=== PATIENT | female | born 1970 | race Caucasian/White ===

== ENCOUNTER 2016-07-19 08:47 | Day surgery (SDC) | payer BC ==
[2016-07-17 18:28] LABS: HEMATOCRIT 41.2 % (36.0-48.0); HEMOGLOBIN 14.1 g/dL (12.0-16.0)
[2016-07-17 18:41] LABS: A/G RATIO 1.1 (0.7-1.9); ALBUMIN 3.8 G/DL (3.5-5.0); ALKALINE PHOSPHATASE 79 U/L (45-117); BUN (BLOOD UREA NITROGEN) 14 MG/DL (6-23); CALCIUM, SERUM 9.5 MG/DL (8.5-10.4); CHLORIDE, SERUM 109 MMOL/L (96-112); CO2 (CARBON DIOXIDE) 30 MMOL/L (24-34); CREATININE 0.74 MG/DL (0.55-1.02); GFR AFRICAN AMERICAN 113 ML/MIN (>=60); GFR NON AFRICAN AMERICAN 98 ML/MIN (>=60); GLOBULIN 3.5 G/DL (2.5-4.1); GLUCOSE, SERUM 75 MG/DL (60-99); POTASSIUM, SERUM 4.1 MMOL/L (3.5-5.3); SGOT(AST) 9 U/L (5-40); SGPT(ALT) 23 U/L (5-65); SODIUM, SERUM 144 MMOL/L (135-148); TOTAL BILIRUBIN 0.2 MG/DL (0-1.2); TOTAL PROTEIN 7.3 G/DL (6.0-8.5)
--- NOTE | ~2016-07-19 | OP ---
Record Of Operation [facility] [address] [place]. [address] NAME: LUCILLE HORAN : 70 STATUS : [facility]#: [id number] AGE: 45 ADM/REG DATE : 07/19/16 MR#: [id number] REPORT SERV DATE: 07/19/16 DICTATED BY: SAUL SNYDER DATE: 07/19/16 REPORT STATUS : Draft TRANSCRIBED BY: MODL DATE: 07/19/16 DATE OF PROCEDURE: 07/19/2016 PREOPERATIVE DIAGNOSIS: Symptomatic cholelithiasis with recent cholecystitis. POSTOPERATIVE DIAGNOSIS: Symptomatic cholelithiasis with recent cholecystitis. PROCEDURE: Laparoscopic cholecystectomy. ANESTHESIA: General. SURGEON: Saul Snyder M.D. DRUG ABUSE PROGRAM COORDINATOR: Gentry. COMPLICATIONS: None. DRAINS: None. ESTIMATED BLOOD LOSS: 20 mL. FINDINGS: The patient was noted to have a thickened gallbladder wall with a small yellow cholesterol stone impacted into the cystic duct gallbladder junction. It was milked proximally into the gallbladder prior to clipping the cystic duct. OPERATIVE TECHNIQUE: The patient was brought to the operating room, placed on the table in supine position. She had preoperative IV antibiotics. She had sequential hose in place. She voided prior to the procedure. She underwent general endotracheal anesthesia, was prepped and draped in sterile fashion. A time-out was completed. Local anesthesia was instilled to the periumbilical skin. A 15 blade knife was used to make incision through the base of the umbilicus. The skin and fascia were elevated and a Veress needle was inserted, and water drop test safely performed. An 11 mm trocar was inserted through the umbilicus followed by the laparoscope. There was no evidence of Veress or trocar injury. She was then placed in reverse Trendelenburg and rolled to the left. An 11 mm subxiphoid and two 5 mm right upper quadrant trocars were placed under direct visualization. The gallbladder fundus was grasped and elevated over the liver edge. The infundibulum was retracted inferolaterally. The cystic duct gallbladder junction was identified on its lateral aspect and circumferentially dissected. Dissection more medial revealed the cystic artery and it was also circumferentially dissected until it was identified. After both the cystic duct and artery were completely identified, the cystic duct was noted to have a visible stone in the cystic duct gallbladder junction. It was milked proximally and then at this point, two clips were placed proximally and distally on the cystic duct and it was divided. There was no evidence of any other stones or obstruction. At this point, two clips were placed on cystic artery and it was proximal and distal and it was divided between the clips. The gallbladder was then removed from the fossa using electrocautery hook, placed in a specimen bag and removed through the umbilicus. The laparoscope and trocar were reinserted. Record Of Operation [facility] [address] [facility] [place]. [address] NAME: LUCILLE HORAN : 70 STATUS : [facility] PAT#: [id number] AGE: 45 ADM/REG DATE : 07/19/16 MR#: [id number] REPORT SERV DATE: 07/19/16 DICTATED BY: SAUL SNYDER DATE: 07/19/16 REPORT STATUS : Draft TRANSCRIBED BY: LORE DATE: 07/19/16 Examination of the hepatic fossa noted to be hemostatic. The clips were noted to be intact without encroachment of the common bile duct. There was no evidence of any bleeding, biliary spillage, or other visual abnormalities. At this point, all the instruments and trocars were removed under direct visualization as the pneumoperitoneum was aspirated. The umbilical fascia was reapproximated using a [id number] Vicryl suture. Skin edges were reapproximated using absorbable subcuticular Monocryl sutures. Dermabond was applied. She was extubated and taken to the recovery room in stable condition. All sponge and needle counts were reported as correct. SUNITA/LORE Saul Snyder M.D. / [id number] CC: Nirav Nelson Randy G
[~2016-07-19 08:47] MED LIST: CLARIT10 PO; L-LYSINE ACE500 MG PO
== END 2016-07-19 17:40 | disposition home or self-care (01) ==
LOC: SDC 08:47
PROVIDERS: Surgery
PROC: 0FT44ZZ Resection of Gallbladder, Percutaneous Endoscopic Approach (ICD-10-PCS; principal; 2016-07-19 11:15)
DX: K80.10 Calculus of gallbladder with chronic cholecystitis without obstruction (principal); G47.33 Obstructive sleep apnea (adult) (pediatric); E66.9 Obesity, unspecified; K21.9 Gastro-esophageal reflux disease without esophagitis; Z79.899 Other long term (current) drug therapy; Z90.49 Acquired absence of other specified parts of digestive tract; Z98.51 Tubal ligation status
CPT/HCPCS: 80053; 85014; 85018; 88304; A9270-GY; J0690; J1885; J2250; J2405; J2710; J3010; Q9967